=== PATIENT | female | born 1995 | race Caucasian/White ===

== ENCOUNTER 2017-08-10 04:15 | Emergency (ER) | payer MEDICAID ==
[~2017-08-10] VITALS: Ht 154.9 cm; Wt 57.0 kg
[~2017-08-10 04:15] MED LIST: ACET325T14 PO; IBUP-1222 PO; NITR100C56 PO; OXYC-302 PO; PREN1TAB60 PO; no meds
[2017-08-10 04:18] VITALS: BP 97/56
[2017-08-10] MEDS ORDERED: ONDANSETRON ODT 4 MG ONE (04:52)
[2017-08-10] MEDS ORDERED: HYDROcodone/APAP 5/325 TABLET ONE (04:53)
[2017-08-10] MEDS ORDERED: ONDANSETRON ODT 4 MG PO ONE (05:00)
[2017-08-10] MEDS ORDERED: HYDROcodone/APAP 5/325 TABLET PO ONE (05:00)
[2017-08-10 05:30] LABS: BASOPHILS # (AUTO) 0.03 x10^3/uL (0-0.1); BASOPHILS % (AUTO) 0 % (0-1); EOSINOPHILS # (AUTO) 0.04 x10^3/uL (0-0.4); EOSINOPHILS % (AUTO) 0 % (1-7); LYMPHOCYTES # (AUTO) 1.85 x10^3/uL (1-3.4); LYMPHOCYTES % (AUTO) 17 % (22-44); MD NO; MEAN CORPUSCULAR HEMOGLOBIN 31.3 pg (27.0-34.8); MEAN CORPUSCULAR HGB CONC 34.1 g/dL (32.4-35.8); MEAN CORPUSCULAR VOLUME 91.8 fL (80-100); MEAN PLATELET VOLUME 8.5 fL (7.4-10.4); MONOCYTES # (AUTO) 0.58 x10^3/uL (0.2-0.8); MONOCYTES % (AUTO) 5 % (2-9); NEUTROPHILS # (AUTO) 8.65 x10^3/uL (1.8-6.8); NEUTROPHILS % (AUTO) 78 % (42-75); PLATELET COUNT 251 x10^3/uL (130-400); RED BLOOD COUNT 3.35 x10^6/uL (3.82-5.3); RED CELL DISTRIBUTION WIDTH 13.4 % (9.6-15.2)
[2017-08-10 05:44] LABS: ALBUMIN 3.3 g/dL (3.4-5.0); ANION GAP 8 mmol/L (5-15); CALCIUM 8.8 mg/dL (8.5-10.1); CHLORIDE 106 mmol/L (98-107); CREATININE 0.74 mg/dL (0.55-1.02)
[2017-08-10] MEDS ORDERED: SODIUM CHLORIDE FLUSH 10ML SYR IVF ONE (07:00)
[2017-08-10] MEDS ORDERED: SODIUM CHLORIDE 0.9% 1,000ML IVBOLUS ONE (07:00)
== END 2017-08-10 08:23 | disposition home or self-care (01) ==
LOC: ED 08:00
DX: O03.9 Complete or unspecified spontaneous abortion without complication (principal); O99.011 Anemia complicating pregnancy, first trimester; Z3A.09 9 weeks gestation of pregnancy
CPT/HCPCS: 36415; 76830; 80048; 82040; 84702; 85025; 99285

== ENCOUNTER → 2017-12-10 | Outpatient (CLI) | payer MEDICAID | END | disposition home or self-care (01) | LOC: RAD 16:59 | PROVIDERS: ATTEND Emergency Medicine | DX: O26.891 Other specified pregnancy related conditions, first trimester (principal); Z3A.13 13 weeks gestation of pregnancy; R10.9 Unspecified abdominal pain | CPT/HCPCS: 76801 ==

== ENCOUNTER 2018-01-27 13:46 | Outpatient (CLI) | payer MEDICAID ==
[~2018-01-27] VITALS: Ht 154.9 cm; Wt 62.7 kg
[2018-01-27 14:19] VITALS: BP 121/58
[2018-01-27 14:20] LABS: MICROSCOPIC AUTO
[2018-01-27 15:39] LABS: BASOPHILS # (AUTO) 0.02 x10^3/uL (0-0.1); BASOPHILS % (AUTO) 0 % (0-1); EOSINOPHILS # (AUTO) 0.08 x10^3/uL (0-0.4); EOSINOPHILS % (AUTO) 1 % (1-7); LYMPHOCYTES # (AUTO) 1.83 x10^3/uL (1-3.4); LYMPHOCYTES % (AUTO) 22 % (22-44); MD NO; MEAN CORPUSCULAR HEMOGLOBIN 30.1 pg (27.0-34.8); MEAN CORPUSCULAR HGB CONC 34.5 g/dL (32.4-35.8); MEAN CORPUSCULAR VOLUME 87.3 fL (80-100); MEAN PLATELET VOLUME 9.1 fL (7.4-10.4); MONOCYTES % (AUTO) 8 % (2-9); NEUTROPHILS # (AUTO) 5.86 x10^3/uL (1.8-6.8); NEUTROPHILS % (AUTO) 69 % (42-75); PLATELET COUNT 239 x10^3/uL (130-400); RED CELL DISTRIBUTION WIDTH 17.4 % (9.6-15.2)
[2018-01-27] MEDS ORDERED: ONDANSETRON 4 MG TABLET ONE (16:23)
[2018-01-27] MEDS ORDERED: ONDANSETRON ODT 4 MG PO ONE (16:30)
== END 2018-01-27 16:20 | disposition home or self-care (01) ==
LOC: LDOP 13:46
PROVIDERS: ATTEND Obstetrics & Gynecology
DX: O26.892 Other specified pregnancy related conditions, second trimester (principal); R10.9 Unspecified abdominal pain; Z3A.20 20 weeks gestation of pregnancy
CPT/HCPCS: 36415; 59025; 76857; 81001; 85025; 87086; 99211; Q0162; 99201; G0463

== ENCOUNTER 2018-02-06 17:56 | Outpatient (CLI) | payer MEDICAID ==
[~2018-02-06] VITALS: Ht 154.9 cm; Wt 63.6 kg
== END 2018-02-06 19:07 | disposition home or self-care (01) ==
LOC: LDOP 17:56
PROVIDERS: ATTEND Obstetrics & Gynecology
DX: O42.912 Preterm premature rupture of membranes, unspecified as to length of time between rupture and onset of labor, second trimester (principal); Z3A.22 22 weeks gestation of pregnancy
CPT/HCPCS: 59025; 84112; 99201; G0463

== ENCOUNTER 2018-04-13 19:19 | Outpatient (CLI) | payer MEDICAID ==
[~2018-04-13] VITALS: Ht 154.9 cm; Wt 70.0 kg
[2018-04-13 19:25] VITALS: BP 108/53
[2018-04-13] MEDS ORDERED: ONDANSETRON 2MG/ML, 2ML ONE (20:23)
[2018-04-13] MEDS ORDERED: ONDANSETRON 2MG/ML, 2ML IVPush ONE (20:30)
[2018-04-13] MEDS ORDERED: LACTATED RINGERS 1,000 ML IVBOLUS ONE (20:30)
[2018-04-13] MEDS ORDERED: LOPERAMIDE 1 MG/5 ML, 10ML UDC PO ONE (20:30)
[2018-04-13 20:45] LABS: MICROSCOPIC INDICATED
== END 2018-04-13 21:26 | disposition home or self-care (01) ==
LOC: LDOP 19:19
PROVIDERS: ATTEND Obstetrics & Gynecology
DX: O21.2 Late vomiting of pregnancy (principal); O26.893 Other specified pregnancy related conditions, third trimester; R19.7 Diarrhea, unspecified; Z3A.31 31 weeks gestation of pregnancy
CPT/HCPCS: 59025; 81001; 87086; 96361; 96374; 99211; J2405; J7120; 96360; G0463

== ENCOUNTER 2018-04-30 11:45 | Outpatient (CLI) | payer MEDICAID ==
[~2018-04-30] VITALS: Ht 154.9 cm; Wt 71.8 kg
[2018-04-30 12:26] VITALS: BP 118/62
[2018-04-30 15:51] LABS: MICROSCOPIC NOT IND
== END 2018-04-30 15:45 | disposition home or self-care (01) ==
LOC: LDOP 11:45
PROVIDERS: ATTEND Obstetrics & Gynecology
DX: O42.913 Preterm premature rupture of membranes, unspecified as to length of time between rupture and onset of labor, third trimester (principal); Z3A.34 34 weeks gestation of pregnancy
CPT/HCPCS: 59025; 81003; 84112; 87086; 99211; G0463

== ENCOUNTER 2018-05-13 02:37 | Outpatient (CLI) | payer MEDICAID ==
[~2018-05-13] VITALS: Ht 154.9 cm; Wt 72.7 kg
[2018-05-13 03:21] VITALS: BP 117/56
== END 2018-05-13 03:48 | disposition home or self-care (01) ==
LOC: LDOP 02:37
PROVIDERS: ATTEND Obstetrics & Gynecology
DX: O42.913 Preterm premature rupture of membranes, unspecified as to length of time between rupture and onset of labor, third trimester (principal); Z3A.35 35 weeks gestation of pregnancy
CPT/HCPCS: 59025; 89060; 99211; G0463; Q0114

== ENCOUNTER 2018-05-17 21:25 | Outpatient (CLI) | payer MEDICAID ==
[~2018-05-17] VITALS: Ht 154.9 cm; Wt 75.5 kg
[2018-05-17 21:53] LABS: FERNING TEST FERNING NOT PRESENT (NEGATIVE)
[2018-05-17 21:55] VITALS: BP 128/60
[2018-05-17 22:16] LABS: MICROSCOPIC INDICATED
== END 2018-05-17 22:30 | disposition home or self-care (01) ==
LOC: LDOP 21:25
PROVIDERS: ATTEND Obstetrics & Gynecology
DX: O42.913 Preterm premature rupture of membranes, unspecified as to length of time between rupture and onset of labor, third trimester (principal); Z3A.36 36 weeks gestation of pregnancy
CPT/HCPCS: 59025; 81001; 84112; 87086; 89060; 99211; G0463; Q0114

== ENCOUNTER 2018-05-26 18:37 | Observation (INO) | payer MEDICAID ==
[2018-05-26 19:42] VITALS: BP 117/65
[2018-05-26 19:49] LABS: MICROSCOPIC INDICATED
== END 2018-05-26 22:12 | disposition home or self-care (01) ==
LOC: LDOP 18:37 → LDIP 20:35
PROVIDERS: ADMIT Obstetrics & Gynecology; ATTEND Obstetrics & Gynecology
DX: O26.893 Other specified pregnancy related conditions, third trimester (principal); R10.9 Unspecified abdominal pain; Z04.1 Encounter for examination and observation following transport accident; V43.52XA Car driver injured in collision with other type car in traffic accident, initial encounter; Y92.410 Unspecified street and highway as the place of occurrence of the external cause; Z3A.37 37 weeks gestation of pregnancy
CPT/HCPCS: 36415; 76815; 81001; 85460; 87086; 89060; G0378; 59025; Q0114

== ENCOUNTER 2018-06-07 08:06 | Inpatient (IN) | payer MEDICAID ==
[~2018-06-07] VITALS: Ht 154.9 cm; Wt 75.0 kg
[2018-06-07 08:41] VITALS: BP 140/65
[2018-06-07] MEDS ORDERED: OXYTOCIN 30U/ 0.9% NaCL 500ML 500 ML IV ONE (08:43)
[2018-06-07] MEDS ORDERED: D5%-LACTATED RINGERS 1,000 ML IV SCH (08:43)
[2018-06-07] MEDS ORDERED: OXYTOCIN 30U/ 0.9% NaCL 500ML 500 ML IV PRN (08:43)
[2018-06-07] MEDS ORDERED: FENTANYL PF 100 MCG/2ML IV PRN (09:00)
[2018-06-07] MEDS ORDERED: PLEASE ENTER HEIGHT AND WEIGHT MC SCH (09:00)
[2018-06-07] MEDS ORDERED: CALCIUM CARBONATE 500 MG TAB.CHEW PO PRN (09:00)
[2018-06-07] MEDS ORDERED: ONDANSETRON 2MG/ML, 2ML IVPush PRN ×2 (09:00→14:00)
[2018-06-07] MEDS ORDERED: TERBUTALINE 1 MG/ML, 1ML IVPush PRN (09:00)
[2018-06-07] MEDS ORDERED: OXYTOCIN 30U/ 0.9% NaCL 500ML 500 ML ONE ×2 (09:08→18:02)
[2018-06-07 09:21] LABS: BASOPHILS # (AUTO) 0.05 x10^3/uL (0-0.1); BASOPHILS % (AUTO) 1 % (0-1); EOSINOPHILS # (AUTO) 0.13 x10^3/uL (0-0.4); EOSINOPHILS % (AUTO) 1 % (1-7); LYMPHOCYTES # (AUTO) 2.01 x10^3/uL (1-3.4); LYMPHOCYTES % (AUTO) 22 % (22-44); MD NO; MEAN CORPUSCULAR HGB CONC 33.3 g/dL (32.4-35.8); MEAN CORPUSCULAR VOLUME 87.2 fL (80-100); MEAN PLATELET VOLUME 9.1 fL (7.4-10.4); MONOCYTES # (AUTO) 0.83 x10^3/uL (0.2-0.8); MONOCYTES % (AUTO) 9 % (2-9); NEUTROPHILS # (AUTO) 6.14 x10^3/uL (1.8-6.8); NEUTROPHILS % (AUTO) 67 % (42-75); PLATELET COUNT 261 x10^3/uL (130-400); RED BLOOD COUNT 4.15 x10^6/uL (3.82-5.3); RED CELL DISTRIBUTION WIDTH 16.5 % (9.6-15.2)
[2018-06-07] MEDS: LACTATED RINGERS 1,000 ML IV SCH ×2 (09:26→14:00)
[2018-06-07 09:35] VITALS: BP 140/65
[2018-06-07 11:04] LABS: AMPHETAMINE SCREEN, URINE Negative (Negative); BARBITURATE SCREEN, URINE Negative (Negative); CANNABINOID SCREEN, URINE Negative (Negative); METHADONE SCREEN, URINE Negative (Negative); OPIATE SCREEN, URINE Negative (Negative)
[2018-06-07 11:05] LABS: BENZODIAZEPINE SCREEN, URINE Negative (Negative); COCAINE SCREEN, URINE Negative (Negative)
[2018-06-07] MEDS ORDERED: FENTANYL PF 100 MCG/2ML ONE ×2 (11:19→12:39)
[2018-06-07] MEDS: FENTANYL PF 100 MCG/2ML IVPush PRN ×2 (11:21→12:42)
[2018-06-07] MEDS ORDERED: BUPIVACAINE 0.25% ONE (13:38)
[2018-06-07] MEDS ORDERED: ROPIvacaine/PF 0.2% , 100 ML ONE (13:38)
[2018-06-07] MEDS ORDERED: FENTANYL/BUPIV./NS/PF 250 ML EPIDCONT SCH (13:59)
[2018-06-07] MEDS ORDERED: LACTATED RINGERS 1,000 ML IV SCH (13:59)
[2018-06-07] MEDS ORDERED: NALOXONE 0.4 MG/ML, 1ML IVPush PRN (14:00)
[2018-06-07] MEDS ORDERED: EPHEDRINE 50 MG/ML, 1ML IVPush PRN (14:00)
[2018-06-07] MEDS ORDERED: LACTATED RINGERS 1,000 ML IVBOLUS PRN (14:00)
[2018-06-07] MEDS ORDERED: DIPHENHYDRAMINE 50 MG/ML, 1ML IVPush PRN (14:00)
[2018-06-07] MEDS ORDERED: FENTANYL PF 500 MCG, BUPIVACAINE/PF 0.5%, 30ML 62.5 ML in SODIUM CHLORIDE 0.9% 177.5 ML EPIDCONT SCH (14:30)
[2018-06-07] MEDS ORDERED: MISOPROSTOL 200 MCG TABLET PR PRN (17:00)
[2018-06-07] MEDS ORDERED: OXYcodone/APAP 5/325MG TABLET PO PRN (17:00)
[2018-06-07] MEDS ORDERED: DOCUSATE 100 MG CAPSULE PO PRN (17:00)
[2018-06-07] MEDS ORDERED: ONDANSETRON 2MG/ML, 2ML IV PRN (17:00)
[2018-06-07] MEDS ORDERED: MAGNESIUM HYDROXIDE 8%, 30ML UDC PO PRN (17:00)
[2018-06-07] MEDS: OXYTOCIN 30U/ 0.9% NaCL 500ML 500 ML IV SCH (18:07)
[2018-06-07 20:00] VITALS: BP 122/73
[2018-06-08 00:30] VITALS: BP 121/88
[2018-06-08] MEDS: IBUPROFEN 600 MG TABLET PO PRN ×3 (00:39→15:32)
[2018-06-08 01:11] LABS: BASOPHILS # (AUTO) 0.03 x10^3/uL (0-0.1); BASOPHILS % (AUTO) 0 % (0-1); EOSINOPHILS # (AUTO) 0.09 x10^3/uL (0-0.4); EOSINOPHILS % (AUTO) 1 % (1-7); LYMPHOCYTES # (AUTO) 1.64 x10^3/uL (1-3.4); LYMPHOCYTES % (AUTO) 18 % (22-44); MD NO; MEAN CORPUSCULAR HEMOGLOBIN 29.9 pg (27.0-34.8); MEAN CORPUSCULAR HGB CONC 34.2 g/dL (32.4-35.8); MEAN CORPUSCULAR VOLUME 87.4 fL (80-100); MEAN PLATELET VOLUME 9.1 fL (7.4-10.4); MONOCYTES # (AUTO) 0.71 x10^3/uL (0.2-0.8); MONOCYTES % (AUTO) 8 % (2-9); NEUTROPHILS # (AUTO) 6.86 x10^3/uL (1.8-6.8); NEUTROPHILS % (AUTO) 74 % (42-75); PLATELET COUNT 241 x10^3/uL (130-400); RED BLOOD COUNT 3.49 x10^6/uL (3.82-5.3); RED CELL DISTRIBUTION WIDTH 16.5 % (9.6-15.2)
[2018-06-08] MEDS: OXYTOCIN 30U/ 0.9% NaCL 500ML 500 ML IV SCH (02:39)
[2018-06-08 04:30] VITALS: BP 118/74
[2018-06-08 07:50] VITALS: BP 102/62
[2018-06-08] MEDS ORDERED: PRENATAL VIT/IRON/FA 1 EACH TABLET PO SCH (09:00)
[2018-06-08 13:00] VITALS: BP 109/68
== END 2018-06-08 19:10 | disposition home or self-care (01) | DRG 806 ==
LOC: LDIP 08:36 → 2NW 19:41
PROVIDERS: ADMIT Obstetrics & Gynecology; ATTEND Obstetrics & Gynecology
PROC: 10E0XZZ Delivery of Products of Conception, External Approach (ICD-10-PCS; principal; 2018-06-07)
PROC: 3E033VJ Introduction of Other Hormone into Peripheral Vein, Percutaneous Approach (ICD-10-PCS; 2018-06-07)
PROC: 10907ZC Drainage of Amniotic Fluid, Therapeutic from Products of Conception, Via Natural or Artificial Opening (ICD-10-PCS; 2018-06-07)
PROC: 3E0R3BZ Introduction of Anesthetic Agent into Spinal Canal, Percutaneous Approach (ICD-10-PCS; 2018-06-07)
PROC: 00HU33Z Insertion of Infusion Device into Spinal Canal, Percutaneous Approach (ICD-10-PCS; 2018-06-07)
DX: O69.81X0 Labor and delivery complicated by cord around neck, without compression, not applicable or unspecified (principal); O44.23 Partial placenta previa NOS or without hemorrhage, third trimester; Z37.0 Single live birth; O69.4XX0 Labor and delivery complicated by vasa previa, not applicable or unspecified; O70.0 First degree perineal laceration during delivery; Z3A.39 39 weeks gestation of pregnancy; O99.02 Anemia complicating childbirth; D64.9 Anemia, unspecified; O43.123 Velamentous insertion of umbilical cord, third trimester; O64.0XX0 Obstructed labor due to incomplete rotation of fetal head, not applicable or unspecified
CPT/HCPCS: 36415; 80307; 85025; 86850; 86900; G0378; J3010; J2590; J7120

== ENCOUNTER 2020-05-17 10:16 | Outpatient (CLI) | payer MEDICAID ==
[~2020-05-17] VITALS: Ht 154.9 cm; Wt 66.3 kg
[~2020-05-17 10:16] MED LIST changes: -OXYC-302 PO; +OXYC1TAB14 PO
[2020-05-17 11:33] LABS: MICROSCOPIC INDICATED
== END 2020-05-17 12:15 | disposition home or self-care (01) ==
LOC: LDOP 10:16
PROVIDERS: ATTEND Student in an Organized Health Care Education/Training Program
DX: O36.8130 Decreased fetal movements, third trimester, not applicable or unspecified (principal); O26.893 Other specified pregnancy related conditions, third trimester; Z3A.30 30 weeks gestation of pregnancy; R10.9 Unspecified abdominal pain
CPT/HCPCS: 59025; 81001; 87086

== ENCOUNTER 2020-07-20 11:13 | Outpatient (CLI) | payer MEDICAID ==
[~2020-07-20] VITALS: Ht 154.9 cm; Wt 67.7 kg
[2020-07-20 11:26] VITALS: BP 112/67
[2020-07-20 12:23] LABS: AMPHETAMINE SCREEN, URINE Negative (Negative); BARBITURATE SCREEN, URINE Negative (Negative); BENZODIAZEPINE SCREEN, URINE Negative (Negative); CANNABINOID SCREEN, URINE Positive (Negative); COCAINE SCREEN, URINE Negative (Negative); METHADONE SCREEN, URINE Negative (Negative); OPIATE SCREEN, URINE Negative (Negative)
== END 2020-07-20 13:35 | disposition home or self-care (01) ==
LOC: LDOP 11:13
PROVIDERS: ATTEND Student in an Organized Health Care Education/Training Program
DX: O42.92 Full-term premature rupture of membranes, unspecified as to length of time between rupture and onset of labor (principal); Z3A.38 38 weeks gestation of pregnancy
CPT/HCPCS: 59025; 76815; 80307; 84112

== ENCOUNTER 2020-07-22 14:27 | Inpatient (IN) | payer MEDICAID ==
[~2020-07-22] VITALS: Ht 154.9 cm; Wt 69.5 kg
[2020-07-23] MEDS ORDERED: MISOPROSTOL 25 MCG TABLET VG PRN (11:00)
[2020-07-23] MEDS ORDERED: ONDANSETRON 2MG/ML, 2ML IVPush PRN ×2 (11:00→21:30)
[2020-07-23] MEDS ORDERED: SODIUM CITRATE/CITRIC ACID 30 ML UDC PO PRN (11:00)
[2020-07-23] MEDS ORDERED: FENTANYL PF 100 MCG/2ML IVPush PRN (11:00)
[2020-07-23] MEDS ORDERED: TERBUTALINE 1 MG/ML, 1ML SQ PRN (11:00)
[2020-07-23] MEDS ORDERED: TERBUTALINE 1 MG/ML, 1ML IVPush PRN (11:00)
[2020-07-23] MEDS ORDERED: OXYTOCIN 30U/ 0.9% NaCL 500ML 500 ML IV PRN (11:00)
[2020-07-23] MEDS ORDERED: OXYTOCIN 30U/ 0.9% NaCL 500ML 500 ML IV ONE (11:00)
[2020-07-23] MEDS ORDERED: METOCLOPRAMIDE 5 MG/ML, 2ML IVPush PRN (11:00)
[2020-07-23] MEDS ORDERED: FENTANYL PF 100 MCG/2ML IV PRN (11:00)
[2020-07-23] MEDS: D5%-LACTATED RINGERS 1,000 ML IV SCH ×2 (11:00→19:00)
[2020-07-23] MEDS: LACTATED RINGERS 1,000 ML IV SCH ×2 (11:15→19:00)
[2020-07-23 11:25] LABS: BASOPHILS % (AUTO) 0 % (0-1); EOSINOPHILS % (AUTO) 2 % (1-7); LYMPHOCYTES % (AUTO) 23 % (22-44); MEAN CORPUSCULAR HEMOGLOBIN 30.8 pg (27.0-34.8); MEAN CORPUSCULAR HGB CONC 34.4 g/dL (32.4-35.8); MEAN PLATELET VOLUME 8.9 fL (7.4-10.4); MONOCYTES % (AUTO) 8 % (2-9); NEUTROPHILS % (AUTO) 67 % (42-75); PLATELET COUNT 213 x10^3/uL (130-400); RED BLOOD COUNT 4.02 x10^6/uL (3.82-5.3); RED CELL DISTRIBUTION WIDTH 14.5 % (9.6-15.2)
[2020-07-23] MEDS ORDERED: NEWBORN KIT ONE (11:25)
[2020-07-23 11:26] LABS: MD NO
[2020-07-23 11:37] VITALS: BP 135/62
[2020-07-23] MEDS ORDERED: CALCIUM CARBONATE 500 MG TAB.CHEW PO PRN (12:00)
[2020-07-23] MEDS ORDERED: CALCIUM CARBONATE 500 MG TAB.CHEW ONE (12:14)
[2020-07-23 15:12] LABS: AMPHETAMINE SCREEN, URINE Negative (Negative); BARBITURATE SCREEN, URINE Negative (Negative); BENZODIAZEPINE SCREEN, URINE Negative (Negative); CANNABINOID SCREEN, URINE Positive (Negative); COCAINE SCREEN, URINE Negative (Negative); METHADONE SCREEN, URINE Negative (Negative); OPIATE SCREEN, URINE Negative (Negative)
[2020-07-23] MEDS ORDERED: FENTANYL/BUPIV./NS/PF 250 ML EPIDCONT ONE (20:45)
[2020-07-23] MEDS ORDERED: BUPIVACAINE 0.25% ONE (20:45)
[2020-07-23] MEDS ORDERED: LACTATED RINGERS 1,000 ML IV SCH (21:30)
[2020-07-23] MEDS ORDERED: FENTANYL/BUPIV./NS/PF 250 ML EPIDCONT SCH (21:30)
[2020-07-23] MEDS ORDERED: NALOXONE 0.4 MG/ML, 1ML IVPush PRN (21:30)
[2020-07-23] MEDS ORDERED: LACTATED RINGERS 1,000 ML IVBOLUS PRN (21:30)
[2020-07-23] MEDS ORDERED: EPHEDRINE 50 MG/ML, 1ML IVPush PRN (21:30)
[2020-07-23] MEDS ORDERED: DIPHENHYDRAMINE 50 MG/ML, 1ML IVPush PRN (21:30)
[2020-07-24] MEDS ORDERED: SIMETHICONE 80 MG CHEW TAB PO PRN (01:00)
[2020-07-24] MEDS: OXYTOCIN 30U/ 0.9% NaCL 500ML 500 ML IV SCH ×2 (01:00→11:00)
[2020-07-24] MEDS ORDERED: ONDANSETRON 2MG/ML, 2ML IV PRN (01:00)
[2020-07-24] MEDS ORDERED: MISOPROSTOL 200 MCG TABLET PR PRN (01:00)
[2020-07-24] MEDS ORDERED: ACETAMINOPHEN 325 MG TABLET PO PRN (01:00)
[2020-07-24 03:53] VITALS: BP 126/82
[2020-07-24 08:00] VITALS: BP 122/80
[2020-07-24 09:02] LABS: BASOPHILS % (AUTO) 1 % (0-1); EOSINOPHILS % (AUTO) 1 % (1-7); LYMPHOCYTES % (AUTO) 18 % (22-44); MEAN CORPUSCULAR HEMOGLOBIN 30.8 pg (27.0-34.8); MEAN CORPUSCULAR HGB CONC 34.8 g/dL (32.4-35.8); MEAN PLATELET VOLUME 9.2 fL (7.4-10.4); MONOCYTES % (AUTO) 10 % (2-9); NEUTROPHILS % (AUTO) 71 % (42-75); PLATELET COUNT 178 x10^3/uL (130-400); RED BLOOD COUNT 3.76 x10^6/uL (3.82-5.3); RED CELL DISTRIBUTION WIDTH 14.4 % (9.6-15.2)
[2020-07-24 09:04] LABS: MD NO
[2020-07-24] MEDS: DOCUSATE 100 MG CAPSULE PO PRN ×2 (10:10→20:43)
[2020-07-24] MEDS: PRENATAL VIT/IRON/FA 1 EACH TABLET PO SCH (10:10)
[2020-07-24] MEDS: IBUPROFEN 600 MG TABLET PO PRN ×2 (11:07→20:42)
[2020-07-24 12:00] VITALS: BP 110/78
[2020-07-24 16:00] VITALS: BP 116/68
[2020-07-24 19:00] VITALS: BP_SYST 113; BP_SYST 133; BP_DIAS 67; BP_DIAS 85
[2020-07-25 01:06] VITALS: BP 116/71
[2020-07-25] MEDS: IBUPROFEN 600 MG TABLET PO PRN ×2 (03:05→10:43)
[2020-07-25 07:20] VITALS: BP 124/72
[2020-07-25] MEDS ORDERED: IBUP-1222 PO (08:50)
[2020-07-25] MEDS: PRENATAL VIT/IRON/FA 1 EACH TABLET PO SCH (10:43)
[2020-07-25] MEDS: DOCUSATE 100 MG CAPSULE PO PRN (10:43)
== END 2020-07-25 12:30 | disposition home or self-care (01) | DRG 807 ==
LOC: LDIP 07-23 10:54 → 2NE 07-24 03:15 → 2NW 07-24 04:22
PROVIDERS: ADMIT Student in an Organized Health Care Education/Training Program; ATTEND Student in an Organized Health Care Education/Training Program
PROC: 10E0XZZ Delivery of Products of Conception, External Approach (ICD-10-PCS; principal; 2020-07-24)
PROC: 10907ZC Drainage of Amniotic Fluid, Therapeutic from Products of Conception, Via Natural or Artificial Opening (ICD-10-PCS; 2020-07-24)
PROC: 3E0R3BZ Introduction of Anesthetic Agent into Spinal Canal, Percutaneous Approach (ICD-10-PCS; 2020-07-24)
PROC: 00HU33Z Insertion of Infusion Device into Spinal Canal, Percutaneous Approach (ICD-10-PCS; 2020-07-24)
PROC: 3E0P7VZ Introduction of Hormone into Female Reproductive, Via Natural or Artificial Opening (ICD-10-PCS; 2020-07-24)
PROC: 0HQ9XZZ Repair Perineum Skin, External Approach (ICD-10-PCS; 2020-07-24)
DX: O69.81X0 Labor and delivery complicated by cord around neck, without compression, not applicable or unspecified (principal); Z37.0 Single live birth; O99.284 Endocrine, nutritional and metabolic diseases complicating childbirth; E55.9 Vitamin D deficiency, unspecified; Z3A.39 39 weeks gestation of pregnancy; F32.9 Major depressive disorder, single episode, unspecified; Z20.822 Contact with and (suspected) exposure to COVID-19; O99.344 Other mental disorders complicating childbirth; O70.0 First degree perineal laceration during delivery
CPT/HCPCS: 36415; 80307; 85025; 86592; 86850; 86900; 87635; G0378; J2405; J2590; J7120